=== PATIENT | male | born 1995 ===

== ENCOUNTER 2023-10-28 17:50 | Day surgery (SDC) | payer BC, OTHER ==
[2023-10-28] MEDS: Sodium Chloride 0.9% 1,000 ML IV ONE (18:26)
[2023-10-28 18:30] LABS: BASOPHILS ABSOLUTE AUTO 0.06 K/uL (0.00-0.20); BASOPHILS PERCENT AUTO 0.4 % (0.0-1.0); EOSINOPHILS ABSOLUTE AUTO 0.05 K/uL (0.00-0.45); EOSINOPHILS PERCENT AUTO 0.4 % (0.0-6.0); HEMATOCRIT 46.9 % (42.0-52.0); HEMOGLOBIN 16.1 g/dL (14.0-18.0); IMMATURE GRAN PERCENT AUTO 0.7 % (0.0-0.4); LYMPHOCYTES ABSOLUTE AUTO 1.71 K/uL (1.00-4.80); LYMPHOCYTES PERCENT AUTO 12.3 % (24.0-44.0); MEAN CORPUSCULAR HEMOGLOBIN 27.4 pg (28.0-32.0); MEAN CORPUSCULAR HGB CONC 34.3 g/dL (32.0-36.0); MEAN CORPUSCULAR VOLUME 79.9 fL (83.0-99.0); MEAN PLATELET VOLUME 9.5 fL (9.4-12.4); MONOCYTES ABSOLUTE AUTO 0.56 K/uL (0.00-0.80); NEUTROPHILS ABSOLUTE AUTO 11.47 K/uL (1.80-7.70); NEUTROPHILS PERCENT AUTO 82.2 % (41.0-71.0); PLATELET COUNT,PLT 380 K/uL (150-400); RED BLOOD CELL COUNT 5.87 M/uL (4.52-5.90); WHITE BLOOD CELL COUNT,WBC 13.95 K/uL (3.9-11.3)
[2023-10-28] MEDS: Ketorolac 30 MG/ML SDV IVPUSH ONE (18:44)
[2023-10-28] MEDS: Ondansetron 4 MG/2 ML SDV IVPUSH ONE (18:44)
[2023-10-28 18:54] LABS: ALBUMIN 4.2 g/dL (3.4-5.0); BILIRUBIN TOTAL 0.4 mg/dL (0.2-1.0); CALCIUM 9.8 mg/dL (8.5-10.1); CARBON DIOXIDE,CO2 22.7 mmol/L (21.0-32.0); CREATININE 1.3 mg/dL (0.8-1.3); EST CRCL DRUG DOSING (CG) 100.21 mL/min; POTASSIUM,K 4.1 mmol/L (3.5-5.1); PROTEIN TOTAL,TP 8.2 g/dL (6.4-8.2)
[2023-10-28 19:11] LABS: APPEARANCE,URINE CLEAR; BILIRUBIN,URINE NEGATIVE (NEGATIVE); COLOR,URINE YELLOW; GLUCOSE,URINE NEGATIVE (NEGATIVE); KETONES,URINE 15 mg/dL (NEGATIVE); LEUKOCYTE ESTERASE,URINE NEGATIVE (NEGATIVE); NITRITE,URINE POSITIVE (NEGATIVE); OCCULT BLOOD,URINE MODERATE (NEGATIVE); PROTEIN,URINE NEGATIVE (NEGATIVE); UROBILINOGEN,URINE 0.2 EU/dL (<2.0)
[2023-10-28 19:25] LABS: BACTERIA,URINE FEW (NEGATIVE); EPITHELIAL CELLS,URINE RARE (NONE-FEW)
[2023-10-28] MEDS: Iopamidol 755 MG/ML 500 ML Multipack Bottle IVPUSH STA (19:30)
[2023-10-28] MEDS: cefTRIAXone 1 GM in Sodium Chloride 0.9% 50 ML IV ONE (19:58)
[2023-10-28] MEDS: Piperacillin/Tazobactam 4.5 GM in Sodium Chloride 0.9% 100 ML IV ONE (20:46)
[2023-10-28] MEDS: Morphine 4 MG/ML Syringe IVPUSH ONE (20:46)
[2023-10-28] MEDS ORDERED: Acetaminophen/HYDROcodone 325-5 MG Tab PO PRN (21:33)
[2023-10-28] MEDS ORDERED: Sodium Chloride 0.9% 20 ML SDV IV PRN (21:33)
[2023-10-28] MEDS ORDERED: Ondansetron 4 MG/2 ML SDV IVPUSH PRN (21:33)
[2023-10-28] MEDS ORDERED: Sodium Chloride 0.9% 10 ML Syringe FLUSH PRN (21:33)
[2023-10-28] MEDS ORDERED: Sodium Chloride 0.9% 2.5 ML Syringe FLUSH PRN (21:33)
[2023-10-28] MEDS ORDERED: diphenhydrAMINE 50 MG/ML SDV IVPUSH PRN (21:33)
[2023-10-28] MEDS: Sodium Chloride 0.9% 1,000 ML IV SCH (23:05)
[2023-10-29] MEDS: HYDROmorphone 2 MG/ML Syringe IVPUSH PRN (02:09)
[2023-10-29] MEDS: Piperacillin/Tazobactam 4.5 GM in Sodium Chloride 0.9% 100 ML IV SCH ×2 (03:23→15:54)
[2023-10-29 08:23] LABS: HEMOGLOBIN A1C 5.7 %
[2023-10-29] MEDS ORDERED: Sugammadex Sodium 200 MG/2 ML VIAL IV ONE ×2 (09:53→12:11)
[2023-10-29] MEDS ORDERED: Rocuronium Bromide 50 MG/5 ML Syringe ONE ×2 (09:53→12:03)
[2023-10-29] MEDS ORDERED: Ondansetron 4 MG/2 ML SDV ONE ×2 (09:53→11:23)
[2023-10-29] MEDS ORDERED: Morphine 10 MG/ML SDV ONE (09:54)
[2023-10-29] MEDS ORDERED: Lidocaine 2% 5 ML SDV ONE (09:54)
[2023-10-29] MEDS ORDERED: fentaNYL 100 MCG/2 ML SDV ONE ×2 (09:54→11:35)
[2023-10-29] MEDS ORDERED: Ketamine HCL/NACL, ISO-OSM 50 MG/5 ML Syringe ONE (09:57)
[2023-10-29] MEDS ORDERED: Metoclopramide 10 MG/2 ML SDV IVPUSH PRN (09:59)
[2023-10-29] MEDS ORDERED: droPERidol 5 MG/2 ML SDV IVPUSH PRN (09:59)
[2023-10-29] MEDS ORDERED: Albuterol 0.083% 2.5 MG/3 ML Neb Soln NEB PRN (09:59)
[2023-10-29] MEDS ORDERED: Morphine 2 MG/ML SYRINGE IVPUSH PRN (09:59)
[2023-10-29] MEDS ORDERED: HYDROmorphone 1 MG/ML Syringe IVPUSH PRN (09:59)
[2023-10-29] MEDS ORDERED: fentaNYL 50 MCG/ML SDV IVPUSH PRN (09:59)
[2023-10-29] MEDS ORDERED: Ondansetron 4 MG/2 ML SDV IVPUSH PRN (09:59)
[2023-10-29] MEDS ORDERED: Naloxone 0.4 MG/ML SDV IVPUSH PRN ×2 (09:59→14:28)
[2023-10-29] MEDS ORDERED: propofoL 200 ML ONE (10:00)
[2023-10-29] MEDS ORDERED: Ropivacaine 0.5% 5 MG/ML 30 ML SDV ONE (10:00)
[2023-10-29] MEDS ORDERED: Bupivacaine 0.5% 30 ML SDV ONE (10:42)
[2023-10-29] MEDS ORDERED: Metoclopramide 10 MG/2 ML SDV ONE (10:59)
[2023-10-29] MEDS ORDERED: Metoprolol Tartrate 5 MG/5 ML SDV ONE (11:02)
[2023-10-29] MEDS ORDERED: Magnesium Sulfate (4.06 MEQ/ML) 5 GM/10 ML SDV ONE (11:03)
[2023-10-29] MEDS ORDERED: Dexamethasone 4 MG/ML 5 ML MDV ONE (11:03)
[2023-10-29] MEDS ORDERED: Esmolol 100 MG/10 ML SDV ONE ×2 (11:03→12:33)
[2023-10-29] MEDS ORDERED: Indocyanine Green 25 MG SDV ONE (11:07)
[2023-10-29] MEDS ORDERED: Scopalamine 1mg/3day Transdermal Patch ONE (11:23)
[2023-10-29] MEDS ORDERED: hydrALAZINE 20 MG/ML SDV ONE (11:53)
[2023-10-29] MEDS ORDERED: HYDROmorphone 2 MG/ML Syringe ONE (12:02)
[2023-10-29] MEDS ORDERED: Ketorolac 30 MG/ML SDV ONE (12:12)
[2023-10-29] MEDS ORDERED: Tranexamic Acid 1,000 MG/10 ML Vial ONE (13:04)
[2023-10-29] MEDS ORDERED: HYDROmorphone 2 MG/ML Syringe IVPUSH PRN (14:28)
[2023-10-29] MEDS ORDERED: Acetaminophen/HYDROcodone 325-10 MG Tab PO PRN (14:28)
[2023-10-29] MEDS: Acetaminophen 1,000 MG in Premix Bag 1 BAG IV SCH (15:33)
[2023-10-29] MEDS: Ondansetron 4 MG/2 ML SDV IVPUSH PRN (17:38)
== END 2023-10-30 10:00 | disposition home or self-care (01) ==
LOC: MW.ED 17:50 → UNDOADMOB 20:59 → MW.MS 20:59 → MW.SDS 20:59 → UNDODISOB 10-30 10:00 → MW.SDS 10-30 10:00
PROVIDERS: ATTEND Surgery
DX: K80.00 Calculus of gallbladder with acute cholecystitis without obstruction (principal); K82.A1 Gangrene of gallbladder in cholecystitis; N30.00 Acute cystitis without hematuria
CPT/HCPCS: 36415; 47562; 64488; 74177; 76705; 80053; 81001; 81003; 82947; 83036; 83690; 85025; 87086; 96361; 96365; 96367; 96375; 99285; A9270; J0131; J0360; J0665; J0696; J1100; J1170; J1885; J2270; J2405; J2543; J2704; J2765; J2795; J3010; J3475; J3490; J7030; Q9967; 00790; 99284